=== PATIENT | female | born 1970 | race Caucasian/White ===

== ENCOUNTER 2016-10-19 07:37 | Observation (INO) | payer OTHER ==
[~2016-10-19] VITALS: Ht 167.6 cm; Wt 84.1 kg
[2016-10-19] VITALS (7 sets, daily range): BP systolic 101–142; BP diastolic 64–88; PULSE 61–110; TEMP 36.8; O2SAT 97–99; Ht 167.6 cm; Wt 84.1 kg
[~2016-10-19 07:37] MED LIST: FLX10 PO; IBUP600T44 PO; PRENTAB26 PO
[2016-10-19] MEDS ORDERED: ONDANSETRON INJ 2 MG/ML 2 ML VIAL IV STA ×2 (07:52→10:22)
[2016-10-19] MEDS ORDERED: MoRPHine SULFATE 10 MG/ML CARP/VIAL IV STA ×2 (07:52→10:44)
[2016-10-19] MEDS ORDERED: SODIUM CHLORIDE 0.9% 1000ML 1,000 ML IV STA (07:52)
[2016-10-19 08:33] LABS: BASO % 0.1 %; BASO ABS # 0.02 K/uL (0-0.2); COMPLETE YES; EOS % 0.4 %; HEMATOCRIT 42.5 % (37-47); IG% 0.4 %; LYMPH % 19.9 %; LYMPH ABS # 3.13 K/uL (1.2-3.4); MEAN CORPUSCULAR HEMOGLOBIN 30.2 pg (25-34); MEAN CORPUSCULAR HGB CONC 35.1 g/dl (32-36); MEAN PLATELET VOLUME 10.2 fL (7.4-10.4); MONO % 4.1 %; NEUT % 75.1 %; PLATELET COUNT 416 K/uL (130-400); RED BLOOD COUNT 4.94 M/uL (4.2-5.4); WHITE BLOOD COUNT 15.75 K/uL (4.8-10.8)
[2016-10-19 08:35] LABS: URINE APPEARANCE CLEAR (CLEAR); URINE BILIRUBIN NEG (NEG); URINE COLOR YELLOW; URINE EPITHELIAL CELL AUTO >30 /lpf (0-5); URINE NITRITE NEG (NEG); URINE PH 6.5 (4.5-7.5); URINE SPECIFIC GRAVITY 1.022 (1.000-1.030); UROBILINOGEN NEG (NEG)
[2016-10-19] MEDS ORDERED: MoRPHine SULFATE 4 MG/ML 1 ML CARP\\VIAL IV STA (08:38)
[2016-10-19 08:40] LABS: MANUAL MICROSCOPIC REQUIRED? NO; REVIEW REQ? NO
--- NOTE | 2016-10-19 08:54 | DIAGNOSTIC IMAGING REPORT ---
ABDOMEN AND PELVIS CT WITHOUT CONTRAST CT DOSE: 953.71 mGy.cm HISTORY: Right-sided flank pain. TECHNIQUE: Multiaxial CT images of the abdomen and pelvis were performed without the use of intravenous and oral contrast according to the standard department stone protocol. COMPARISON STUDY: None. FINDINGS: Trace bilateral pleural effusions. No pneumoperitoneum. No pneumatosis. No fractures within the visualized osseous structures. There are 2 hypodense lesions within the right hepatic lobe which are incompletely characterize on this noncontrast study but favor cysts. The largest measures 11 mm. The unenhanced spleen, adrenal glands, pancreas, and gallbladder are unremarkable. No retroperitoneal lymphadenopathy. No left renal stones. There is a 2 mm stone within the lower pole of the right kidney. Mild right hydronephrosis secondary to an obstructing 5 mm stone within the proximal right ureter. The bladder, uterus, and ovaries are unremarkable. Trace pelvic free fluid. No bowel wall thickening or obstruction. Normal appendix. IMPRESSION: 1. A 5 mm obstructing stone within the proximal right ureter resulting in mild right hydronephrosis. 2. Right-sided nephrolithiasis. 3. Trace bilateral pleural effusions and trace pelvic free fluid. 4. Additional findings as described above. Electronically signed by: Hank Stevens M.D. 10/19/2016 8:53 AM Dictated Date/Time: 10/19/2016 8:48 AM
[2016-10-19 09:00] LABS: BUN/CREATININE RATIO 13.1 (10-20); CALCIUM 9.4 mg/dl (8.5-10.1); CREATININE 0.88 mg/dl (0.60-1.20); POTASSIUM 3.7 mmol/L (3.5-5.1)
[2016-10-19] MEDS ORDERED: KETOROLAC TROMETHAMINE 30 MG/ML VIAL IV STA (09:20)
[2016-10-19] MEDS ORDERED: TAMS0.4C38 PO (10:28)
[2016-10-19] MEDS ORDERED: OXYC-57 PO (10:28)
[2016-10-19] MEDS ORDERED: ONDA4TAB46 PO (10:28)
[2016-10-19] MEDS: TAMSULOSIN HCL 0.4 MG CAP PO ONE (10:30)
[2016-10-19] MEDS ORDERED: PROCHLORPERAZINE 5 MG/ML 2 ML VIAL IV STA (10:44)
[2016-10-19] MEDS ORDERED: MoRPHine SULFATE 10 MG/ML CARP/VIAL ONE (10:46)
[2016-10-19] MEDS ORDERED: MoRPHine SULFATE 2 MG/ML CARP IV PRN (11:15)
[2016-10-19] MEDS ORDERED: ACETAMINOPHEN 325 MG TAB PO PRN (11:15)
[2016-10-19] MEDS ORDERED: POLYETHYLENE (MIRALAX) 17 GM PACK PO PRN (11:30)
--- NOTE | 2016-10-19 11:35 | History and Physical ---
History & Physical Date & Time of Service: October 19, 2016 at 11:33 Chief Complaint: Stomach And Back Pain Primary Care Physician: Eben Boyd M.D. History of Present Illness Source: patient Patient is a 45 year old F with PMH of stone in 1997, no other significant PMH, comes to ER with c/o Right flank pain which started yesterday. Patient has had no recent visits to hospital. Patient comes in with c/o right flank pain which started yesterday. Pain is sharp, stabbing, radiates to lower abdomen, associated with nausea, vomiting- couple of times today. No fever, chills, dysuria, frequency of urination, diarrhea, constipation. No chest pain, SOB, vaginal discharge, leg swelling. In ED, she did receive IV Morphine total of 15 mg, IV Zofran - total of 8 mg, Compazine IV X 1 dose for pain/nausea and one dose of flomax. She was going to be discharged from the hospital, but severe pain returned and thus she will be admitted. CT scan abd/pelvis shows- 5 mm right ureteral stone (obstructing) with mild hydronephrosis, WBC 15k. Will admit her for right ureteral obstructing stone. Social History Smoking Status: Never Smoker Multi-Drug Resistant Organisms History of MDRO: No Allergies Coded Allergies: Shellfish (Unverified Allergy, Unknown, unknown, 10/19/16) Home Medications Scheduled Tamsulosin Hcl (Flomax), 0.4 MG PO QD Scheduled PRN Ondansetron Hcl (Zofran), 4 MG PO Q6H PRN for Nausea or Vomiting Oxycodone/Acetaminophen 5MG/325MG (Percocet 5MG/325MG), 1-2 TABS PO Q6H PRN for Pain Review of Systems Constitutional: No chills, No fever Eyes: No eye pain, No worsening of vision ENT: No hearing loss, No nasal symptoms Respiratory: No cough, No shortness of breath, No sputum, No wheezing Cardiovascular: No chest pain, No edema, No orthopnea Abdomen: + nausea, + pain, + vomiting, No GI bleeding, No constipation, No diarrhea Musculoskeletal: No swelling Genitourinary - Female: No dysuria, No urinary frequency Neurologic: No memory loss, No numbness/tingling, No paralysis, No vertigo, No weakness Psychiatric: No anxiety Endocrine: No fatigue Hematologic / Lymphatic: No abnormal bleeding/bruising Integumentary: No rash Physical Exam Vital Signs Date Time Temp Pulse Resp B/P Pulse Ox O2 Delivery O2 Flow Rate FiO2 10/19/16 11:00 98 Room Air 10/19/16 10:25 70 18 133/80 98 Room Air 10/19/16 08:47 79 20 145/99 97 Room Air 10/19/16 08:09 71 10/19/16 07:40 36.7 86 16 136/73 98 Room Air General Appearance: no apparent distress Head: normocephalic, atraumatic ENT: hearing grossly normal Neck: supple, no JVD Respiratory/Chest: chest non-tender, lungs clear, normal breath sounds, no respiratory distress Cardiovascular: regular rate, rhythm, no edema, no murmur Abdomen/GI: normal bowel sounds, non tender, soft, no organomegaly, + pertinent finding (Right flank tenderness) Back: + right CVA tenderness Extremities/Musculoskelatal: no calf tenderness, no pedal edema Neurologic/Psych: no motor/sensory deficits, alert, oriented x 3 Skin: normal color Diagnostics Laboratory Results Results Past 24 Hours Test 10/19/16 07:55 10/19/16 08:15 Range/Units White Blood Count 15.75 4.8-10.8 K/uL Red Blood Count 4.94 4.2-5.4 M/uL Hemoglobin 14.9 12.0-16.0 g/dL Hematocrit 42.5 37-47 % Mean Corpuscular Volume 86.0 80-100 fL Mean Corpuscular Hemoglobin 30.2 25-34 pg Mean Corpuscular Hemoglobin Concent 35.1 32-36 g/dl Platelet Count 416 130-400 K/uL Mean Platelet Volume 10.2 7.4-10.4 fL Neutrophils (%) (Auto) 75.1 % Lymphocytes (%) (Auto) 19.9 % Monocytes (%) (Auto) 4.1 % Eosinophils (%) (Auto) 0.4 % Basophils (%) (Auto) 0.1 % Neutrophils # (Auto) 11.83 1.4-6.5 K/uL Lymphocytes # (Auto) 3.13 1.2-3.4 K/uL Monocytes # (Auto) 0.64 0.11-0.59 K/uL Eosinophils # (Auto) 0.07 0-0.5 K/uL Basophils # (Auto) 0.02 0-0.2 K/uL RDW Standard Deviation 42.8 36.4-46.3 fL RDW Coefficient of Variation 13.6 11.5-14.5 % Immature Granulocyte % (Auto) 0.4 % Immature Granulocyte # (Auto) 0.06 0.00-0.02 K/uL Sodium Level 139 136-145 mmol/L Potassium Level 3.7 3.5-5.1 mmol/L Chloride Level 104 98-107 mmol/L Carbon Dioxide Level 22 21-32 mmol/L Anion Gap 13.0 3-11 mmol/L Blood Urea Nitrogen 12 7-18 mg/dl Creatinine 0.88 0.60-1.20 mg/dl Est Creatinine Clear Calc Drug Dose 88.2 ml/min Estimated GFR () 92.0 Estimated GFR (Non- 79.3 BUN/Creatinine Ratio 13.1 10-20 Random Glucose 139 70-99 mg/dl Calcium Level 9.4 8.5-10.1 mg/dl Total Bilirubin 1.0 0.2-1 mg/dl Direct Bilirubin 0.2 0-0.2 mg/dl Aspartate Amino Transf (AST/SGOT) 21 15-37 U/L Alanine Aminotransferase (ALT/SGPT) 23 12-78 U/L Alkaline Phosphatase 81 45-117 U/L Total Protein 7.5 6.4-8.2 gm/dl Albumin 3.7 3.4-5.0 gm/dl Lipase 109 73-393 U/L Urine Color YELLOW Urine Appearance CLEAR CLEAR Urine pH 6.5 4.5-7.5 Urine Specific [place] 1.022 1.000-1.030 Urine Protein TRACE NEG Urine Glucose (UA) NEG NEG Urine Ketones 2+ NEG Urine Occult Blood 3+ NEG Urine Nitrite NEG NEG Urine Bilirubin NEG NEG Urine Urobilinogen NEG NEG Urine Leukocyte Esterase NEG NEG Urine WBC (Auto) 1-5 0-5 /hpf Urine RBC (Auto) >30 0-4 /hpf Urine Hyaline Casts (Auto) 1-5 0-5 /lpf Urine Epithelial Cells (Auto) >30 0-5 /lpf Urine Bacteria (Auto) NEG NEG Diagnostic Radiology CT ABD/PELVIS: 1. A 5 mm obstructing stone within the proximal right ureter resulting in mild right hydronephrosis. 2. Right-sided nephrolithiasis. 3. Trace bilateral pleural effusions and trace pelvic free fluid. 4. Additional findings as described above. Impression Assessment and Plan RIGHT URETERAL CALCULUS (OBSTRUCTING) WITH MILD HYDRONEPHROSIS: Prior hx of stone in 1998, which spontaneously passed. -CT scan abd/pelvis- as above 5 mm Rt ureteral stone, obstructing and with mild hydronephrosis -IV Fluids at 125 cc/hour -Flomax 0.4 mg daily, IV Morphine 4 mg q 4 hours PRN for severe pain, IV Zofran PRN -Work up- CT scan abd/pelvis as above, UA- negative for UTI, RBC present -Urology consulted. 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 Y/N: Yes Risk Level: Low Given or contraindicated: T.E.D. Stockings, SCD's
[2016-10-19] MEDS ORDERED: TAMSULOSIN HCL 0.4 MG CAP PO STA (12:03)
[2016-10-19] MEDS ORDERED: IV FLUIDS COMPLETED PRN (12:15)
[2016-10-19] MEDS: SODIUM CHLORIDE 0.9% 1000ML 1,000 ML IV SCH ×2 (12:24→18:56)
[2016-10-19] MEDS ORDERED: MoRPHine SULFATE 4 MG/ML 1 ML CARP\\VIAL IV PRN (15:15)
--- NOTE | 2016-10-19 16:06 | EMERGENCY ROOM VISIT NOTE ---
ED Visit Note First contact with patient: 07:42 Chief Complaint: Abdominal pain. History of Present Illness: Ms. Titus is a 45 year-old white female who ambulates into the ED complaining of right sided abdominal pain. Historically patient reports history of kidney stones Patient reports a acute onset of right-sided back pain that started approximately 24 hours ago. Since that time her pain has been constant but has waxed and waned in intensity. She describes her discomfort as a sharp sensation. The pain is radiating around the abdomen and into the right lower quadrant. She rates her discomfort 9/10. Her pain worsens with palpation of the right lower quadrant. She has not identified any alleviating factors related to the pain. She reports she has used ibuprofen without relief of her discomfort. Her pain is slightly better when she is lying down flat on her back. Associated with her pain she reports nausea and vomiting that started this morning. Patient denies fevers, chills, sweats, skin eruptions, skin color changes, upper respiratory tract symptoms, shortness of breath, chest pain, diarrhea, constipation, rectal bleeding, black/tarry stools, urinary symptoms, hematuria, vaginal bleeding, vaginal discharge. Review of Systems: As noted above in history of present illness. All body systems were reviewed and found to be negative as noted above. Past Medical History: As previously noted Current Medications: Patient denies. Allergies to Medications: Patient denies. Social History: Patient is currently employed; she feels safe in her home environment; Physical Examination: Vital Signs: Date Time Temp Pulse Resp B/P Pulse Ox O2 Delivery O2 Flow Rate FiO2 10/19/16 11:00 98 Room Air 10/19/16 10:25 70 18 133/80 98 Room Air 10/19/16 08:47 79 20 145/99 97 Room Air 10/19/16 08:09 71 10/19/16 07:40 36.7 86 16 136/73 98 Room Air GENERAL: 45-year-old female in moderate to severe distress due to pain, nontoxic -appearing, afebrile and hemodynamically stable. NEUROLOGICAL: Awake, alert and oriented to person, place and time. Answering questions appropriately and following commands. Normal gait. Good hand eye coordination. SKIN: Warm, dry and pink. No soft tissue eruptions or trauma noted. HEENT: Atraumatic and normocephalic. PERRLA. Sclera white and conjunctiva pink. Oral cavity moist and pink. Pharynx is nonerythematous or edematous. Speech normal. No lymphadenopathy. Trachea midline. No jugular venous distention. BACK: No tenderness over the bony spine. No CVA tenderness. THORAX: Lungs sounds are clear to auscultation and equal bilaterally with symmetrical chest wall. No wheezing, rales or rhonchi. No crepitus, tenderness , subcutaneous air or deformities noted. HEART: Regular rate and rhythm. No gallops, rubs or murmurs are appreciated. ABDOMEN: Flat and soft with moderate tenderness throughout the right side of the abdomen including the upper, middle and right lower quadrants with positive McBurney's tenderness and Santoro's sign. Positive bowel sounds in all quadrants. No guarding, rigidity or organomegaly. EXTREMITIES: Moves all extremities well on command and with purpose. All distal neurovascular statuses are intact and equal bilaterally. ED Course: Patient is assessed as noted above. Laboratory Testing: Test 10/19/16 07:55 10/19/16 08:15 Range/Units White Blood Count 15.75 4.8-10.8 K/uL Red Blood Count 4.94 4.2-5.4 M/uL Hemoglobin 14.9 12.0-16.0 g/dL Hematocrit 42.5 37-47 % Mean Corpuscular Volume 86.0 80-100 fL Mean Corpuscular Hemoglobin 30.2 25-34 pg Mean Corpuscular Hemoglobin Concent 35.1 32-36 g/dl Platelet Count 416 130-400 K/uL Mean Platelet Volume 10.2 7.4-10.4 fL Neutrophils (%) (Auto) 75.1 % Lymphocytes (%) (Auto) 19.9 % Monocytes (%) (Auto) 4.1 % Eosinophils (%) (Auto) 0.4 % Basophils (%) (Auto) 0.1 % Neutrophils # (Auto) 11.83 1.4-6.5 K/uL Lymphocytes # (Auto) 3.13 1.2-3.4 K/uL Monocytes # (Auto) 0.64 0.11-0.59 K/uL Eosinophils # (Auto) 0.07 0-0.5 K/uL Basophils # (Auto) 0.02 0-0.2 K/uL RDW Standard Deviation 42.8 36.4-46.3 fL RDW Coefficient of Variation 13.6 11.5-14.5 % Immature Granulocyte % (Auto) 0.4 % Immature Granulocyte # (Auto) 0.06 0.00-0.02 K/uL Sodium Level 139 136-145 mmol/L Potassium Level 3.7 3.5-5.1 mmol/L Chloride Level 104 98-107 mmol/L Carbon Dioxide Level 22 21-32 mmol/L Anion Gap 13.0 3-11 mmol/L Blood Urea Nitrogen 12 7-18 mg/dl Creatinine 0.88 0.60-1.20 mg/dl Est Creatinine Clear Calc Drug Dose 88.2 ml/min Estimated GFR () 92.0 Estimated GFR (Non- 79.3 BUN/Creatinine Ratio 13.1 10-20 Random Glucose 139 70-99 mg/dl Calcium Level 9.4 8.5-10.1 mg/dl Total Bilirubin 1.0 0.2-1 mg/dl Aspartate Amino Transf (AST/SGOT) 21 15-37 U/L Alanine Aminotransferase (ALT/SGPT) 23 12-78 U/L Alkaline Phosphatase 81 45-117 U/L Total Protein 7.5 6.4-8.2 gm/dl Albumin 3.7 3.4-5.0 gm/dl Lipase 109 73-393 U/L Urine Color YELLOW Urine Appearance CLEAR CLEAR Urine pH 6.5 4.5-7.5 Urine Specific [place] 1.022 1.000-1.030 Urine Protein TRACE NEG Urine Glucose (UA) NEG NEG Urine Ketones 2+ NEG Urine Occult Blood 3+ NEG Urine Nitrite NEG NEG Urine Bilirubin NEG NEG Urine Urobilinogen NEG NEG Urine Leukocyte Esterase NEG NEG Urine WBC (Auto) 1-5 0-5 /hpf Urine RBC (Auto) >30 0-4 /hpf Urine Hyaline Casts (Auto) 1-5 0-5 /lpf Urine Epithelial Cells (Auto) >30 0-5 /lpf Urine Bacteria (Auto) NEG NEG Noncontrast Abdominal/Pelvic CT: Were reviewed by myself and read by the radiologist showing a 5 mm obstructing calculus in the proximal right ureter resulting in mild right-sided hydronephrosis. Additionally she has an additional right-sided nephrolithiasis, trace bilateral pleural effusions, trace pelvic fluid and to cystic lesions in the right hepatic lobe which favors cysts. Also noted was a normal-appearing gallbladder, pancreas, appendix, bladder, uterus and ovaries. Patient was hydrated with normal saline and she received 8 mg of morphine and 4 mg of Zofran IV initially for her symptoms. During her ED stay she was reassessed multiple times and was given additional doses of morphine totaling 10 mg, 30 mg of Toradol IV for pain, and an additional dose of 4 mg of Zofran IV and 10 mg of Compazine IV for nausea. Patient was feeling comfortable and I was going to discharge her home but then her pain vomiting returned as she was dressing for discharged. Patient's case was consulted with case management [facility] Patient and were educated about today's findings. Clinical Impression: Irretractable pain and vomiting from ureter calculus. Decision-Making: Initially my differential diagnosis I considered kidney stone, pyelonephritis, pancreatitis, hepatitis, cholecystitis, bowel obstruction, acute appendicitis and other causes. Disposition and Plan: [facility]; please see their notes and orders for final disposition and plan.
[2016-10-19] MEDS: ONDANSETRON INJ 2 MG/ML 2 ML VIAL IV PRN ×2 (16:20→22:23)
--- NOTE | 2016-10-19 17:26 | Urology Consultation ---
History General Date of Service: October 19, 2016. Chief Complaint: right ureteral stone Primary Care Physician: Eben Boyd M.D. Pt seen a urologist before?: No History of Present Illness I am ssekd by Dr Esparza to evaluate and treat patient for right ureteral stone. She has had pain since overnight 10/17 - into . Pain has become severe. Pain is associated with nausea. SHe came to ER. Pain is right flank. CT shows a right upper ureteral stone 5mm wide and 10 mm long. Her pain is not moving. She has a 15 K white count normal creat and no fever urine is clean but with epi cells Her pain is controlled with repeated narcotics and toradol. she had a stone in the 90's passed easily and quickly. Imaging Imaging: CT Laboratory Results Past 24 Hours Test 10/19/16 07:55 10/19/16 08:15 Range/Units White Blood Count 15.75 4.8-10.8 K/uL Red Blood Count 4.94 4.2-5.4 M/uL Hemoglobin 14.9 12.0-16.0 g/dL Hematocrit 42.5 37-47 % Mean Corpuscular Volume 86.0 80-100 fL Mean Corpuscular Hemoglobin 30.2 25-34 pg Mean Corpuscular Hemoglobin Concent 35.1 32-36 g/dl Platelet Count 416 130-400 K/uL Mean Platelet Volume 10.2 7.4-10.4 fL Neutrophils (%) (Auto) 75.1 % Lymphocytes (%) (Auto) 19.9 % Monocytes (%) (Auto) 4.1 % Eosinophils (%) (Auto) 0.4 % Basophils (%) (Auto) 0.1 % Neutrophils # (Auto) 11.83 1.4-6.5 K/uL Lymphocytes # (Auto) 3.13 1.2-3.4 K/uL Monocytes # (Auto) 0.64 0.11-0.59 K/uL Eosinophils # (Auto) 0.07 0-0.5 K/uL Basophils # (Auto) 0.02 0-0.2 K/uL RDW Standard Deviation 42.8 36.4-46.3 fL RDW Coefficient of Variation 13.6 11.5-14.5 % Immature Granulocyte % (Auto) 0.4 % Immature Granulocyte # (Auto) 0.06 0.00-0.02 K/uL Sodium Level 139 136-145 mmol/L Potassium Level 3.7 3.5-5.1 mmol/L Chloride Level 104 98-107 mmol/L Carbon Dioxide Level 22 21-32 mmol/L Anion Gap 13.0 3-11 mmol/L Blood Urea Nitrogen 12 7-18 mg/dl Creatinine 0.88 0.60-1.20 mg/dl Est Creatinine Clear Calc Drug Dose 88.2 ml/min Estimated GFR () 92.0 Estimated GFR (Non- 79.3 BUN/Creatinine Ratio 13.1 10-20 Random Glucose 139 70-99 mg/dl Calcium Level 9.4 8.5-10.1 mg/dl Total Bilirubin 1.0 0.2-1 mg/dl Direct Bilirubin 0.2 0-0.2 mg/dl Aspartate Amino Transf (AST/SGOT) 21 15-37 U/L Alanine Aminotransferase (ALT/SGPT) 23 12-78 U/L Alkaline Phosphatase 81 45-117 U/L Total Protein 7.5 6.4-8.2 gm/dl Albumin 3.7 3.4-5.0 gm/dl Lipase 109 73-393 U/L Urine Color YELLOW Urine Appearance CLEAR CLEAR Urine pH 6.5 4.5-7.5 Urine Specific [place] 1.022 1.000-1.030 Urine Protein TRACE NEG Urine Glucose (UA) NEG NEG Urine Ketones 2+ NEG Urine Occult Blood 3+ NEG Urine Nitrite NEG NEG Urine Bilirubin NEG NEG Urine Urobilinogen NEG NEG Urine Leukocyte Esterase NEG NEG Urine WBC (Auto) 1-5 0-5 /hpf Urine RBC (Auto) >30 0-4 /hpf Urine Hyaline Casts (Auto) 1-5 0-5 /lpf Urine Epithelial Cells (Auto) >30 0-5 /lpf Urine Bacteria (Auto) NEG NEG Labs were reviewed and are within normal limits unless listed below. Labs are available in the chart and at [facility] Problem List Medical Problems: (1) Right ureteral calculus Status: Acute Past History no pertinent history Past Surgical History: orthopedic surgery (left knee scope) Family History sister and father have kidney stones Social History Smoking: non-smoker Alcohol: socially Marital status: Occupation status: employed History of MDRO No Allergies Coded Allergies: Shellfish (Unverified Allergy, Unknown, unknown, 10/19/16) Medications Home Medications: Home Meds and Scripts Medications Dose Route/Sig Max Daily Dose Days Date Category Dose Instructions Flomax (Tamsulosin Hcl) 0.4 Mg Cap 0.4 Mg PO QD 10/19/16 Rx Percocet 5MG/325MG (Oxycodone/Acetaminophen) Tab 1-2 Tabs PO Q6H PRN 10/19/16 Rx For Initial Treatment Zofran (Ondansetron HCl) 4 Mg Tab 4 Mg PO Q6H PRN 10/19/16 Rx Inpatient Medications: Current Inpatient Medications Medications (Trade) Dose Ordered Sig/Osman Route Start Time Stop Time Status Last Admin Dose Admin Acetaminophen (Tylenol Tab) 650 mg Q4H PRN PO 10/19/16 11:15 11/18/16 11:14 Polyethylene (Miralax Powder Packet) 17 gm DAILY PRN PO 10/19/16 11:30 11/18/16 11:29 Ondansetron HCl 4 mg 4 mg Q6H PRN IV 10/19/16 11:15 11/18/16 11:14 10/19/16 16:20 4 MG Sodium Chloride (Nss 1000ml) 1,000 ml @ 125 mls/hr Q8H IV 10/19/16 11:15 11/18/16 11:14 10/19/16 12:24 125 MLS/HR Oxycodone/ Acetaminophen (Percocet 5-325mg Tab) 1 tab Q4H PRN PO 10/19/16 11:15 11/02/16 11:14 Morphine Sulfate (MoRPHine SULFATE INJ) 4 mg Q4H PRN IV 10/19/16 15:15 11/02/16 15:14 10/19/16 14:58 4 MG Tamsulosin HCl (Flomax Cap) 0.4 mg DAILY PO 10/20/16 09:00 11/19/16 08:59 Miscellaneous (Iv Fluids Completed) 1 ea PRN PRN N/A 10/19/16 12:15 10/19/17 12:14 Review of Systems Review of Systems Constitutional: No chills, No fever, No weight loss Endocrine: + tired/sluggish, + too cold, No excessive thirst, No too hot Gastrointestinal: + abdominal pain, + indigestion, + nausea, No constipation, No diarrhea Cardiovascular: No chest pain, No irregular heartbeat, No palpitations Respiratory: No chronic cough, No shortness of breath Female : + kidney stones, No frequent urination, No infections, No painful urination, No urinary retention Physical Exam Vital Signs: Vital Signs Past 12 Hours Date Time Temp Pulse Resp B/P Pulse Ox O2 Delivery O2 Flow Rate FiO2 10/19/16 16:00 36.8 110 16 142/88 99 Room Air 10/19/16 15:06 74 97 Nasal Cannula 2.0 10/19/16 13:15 Nasal Cannula 2.0 10/19/16 12:10 36.8 61 16 113/78 98 Nasal Cannula 2.0 10/19/16 11:30 67 16 121/83 97 Nasal Cannula 2.0 10/19/16 11:00 98 Room Air 10/19/16 10:25 70 18 133/80 98 Room Air 10/19/16 08:47 79 20 145/99 97 Room Air 10/19/16 08:09 71 10/19/16 07:40 36.7 86 16 136/73 98 Room Air Physical Exam: General Appearance: WD/WN, no apparent distress, + obese Eyes: bilateral eyes normal inspection ENT: hearing grossly normal Neck: no adenopathy, no JVD, trachea midline Respiratory/Chest: normal breath sounds, no respiratory distress, no accessory muscle use Cardiovascular: regular rate, rhythm, no edema Gastrointestinal: Abdomen: normal abdomen Bladder: normal bladder Renal: pertinent finding (right cva tenderness) Hernia: absent hernia Extremities: non-tender, normal inspection, no pedal edema, no calf tenderness Neurologic/Psychiatric: alert, normal mood/affect, oriented x 3 Skin: normal color, warm/dry, no rash Assessment & Plan Assessment & Plan right upper ureteral stone has not moved at all here in day 2. I offered observation stent with delayed eswl or ureteroscopy tomorrow she choses right ureteroscopy laser lithotripsy basket stone extraction stent. 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 add toradol, and increased morphine to q 2 hours
[2016-10-19] MEDS: KETOROLAC TROMETHAMINE 30 MG/ML VIAL IV PRN (18:01)
[2016-10-19] MEDS: MoRPHine SULFATE 4 MG/ML 1 ML CARP\\VIAL IV PRN ×2 (19:38→22:24)
[2016-10-20] VITALS (8 sets, daily range): BP systolic 100–120; BP diastolic 65–78; PULSE 75–86; TEMP 36.4–36.9; O2SAT 92–100
[2016-10-20] MEDS: MoRPHine SULFATE 4 MG/ML 1 ML CARP\\VIAL IV PRN ×3 (00:45→09:55)
[2016-10-20] MEDS: OXYCODONE/ACETAMINOPHEN 5-325 TAB PO PRN ×2 (01:43→07:51)
[2016-10-20] MEDS: SODIUM CHLORIDE 0.9% 1000ML 1,000 ML IV SCH ×3 (02:56→19:15)
[2016-10-20] MEDS: KETOROLAC TROMETHAMINE 30 MG/ML VIAL IV PRN ×2 (02:58→10:58)
[2016-10-20] MEDS ORDERED: CEFAZOLIN IV 2,000 MG/60 ML D5W IV SCH (06:00)
[2016-10-20 07:43] LABS: HEMATOCRIT 38.5 % (37-47); MEAN CELL VOLUME 87.9 fL (80-100); MEAN CORPUSCULAR HEMOGLOBIN 28.5 pg (25-34); MEAN CORPUSCULAR HGB CONC 32.5 g/dl (32-36); MEAN PLATELET VOLUME 9.4 fL (7.4-10.4); PLATELET COUNT 281 K/uL (130-400); RED BLOOD COUNT 4.38 M/uL (4.2-5.4); WHITE BLOOD COUNT 11.83 K/uL (4.8-10.8)
[2016-10-20] MEDS: TAMSULOSIN HCL 0.4 MG CAP PO SCH (07:51)
[2016-10-20] MEDS: ONDANSETRON INJ 2 MG/ML 2 ML VIAL IV PRN ×2 (07:51→14:41)
[2016-10-20 08:36] LABS: BUN/CREATININE RATIO 8.2 (10-20); CREATININE 1.1 mg/dl (0.60-1.20); POTASSIUM 3.7 mmol/L (3.5-5.1)
[2016-10-20 08:53] LABS: CALCIUM 8.6 mg/dl (8.5-10.1)
[2016-10-20] MEDS ORDERED: METOCLOPRAMIDE HCL INJ 5 MG/ML 2 ML VIAL IV PRN (10:45)
[2016-10-20] MEDS ORDERED: METOCLOPRAMIDE HCL INJ 5 MG/ML 2 ML VIAL IV SCH (11:00)
[2016-10-20] MEDS ORDERED: PROMETHAZINE HCL INJ 12.5 MG in SODIUM CHLORIDE 0.9% 50ML 50 ML IV PRN (11:45)
--- NOTE | 2016-10-20 11:50 | Progress Note ---
Medicine Progress Note Date & Time of Visit: October 20, 2016 at 11:45. Subjective having nausea this morning denies abdominal pain, no flatus right flank pain persisting- analgesics helping no fevers chest pain, dyspnea, dizziness, palpitations no other symptoms Objective Last 8 Hrs Date Time Temp Pulse Resp B/P Pulse Ox O2 Delivery O2 Flow Rate FiO2 10/20/16 07:45 99 Room Air 10/20/16 07:12 36.7 77 16 117/78 100 Nasal Cannula 2.0 Physical Exam: General- oriented x 3, not in distress, speaks in sentences with no effort Eyes- EOMI, anicteric ENT- oropharynx clear Neck- supple, no JVD, no adenopathy, no thyromegaly Lungs- clear to auscultation b/l Heart- regular rhythm; no murmur, normal rate Abdomen- normal bowel sounds, soft, nontender no CVA tenderness Extremities- no pretibial edema, no calf tenderness Neuro- alert, oriented x 3; no gross focal deficits Skin- warm & dry Laboratory Results: Last 24 Hours Test 10/20/16 07:13 White Blood Count 11.83 K/uL Red Blood Count 4.38 M/uL Hemoglobin 12.5 g/dL Hematocrit 38.5 % Mean Corpuscular Volume 87.9 fL Mean Corpuscular Hemoglobin 28.5 pg Mean Corpuscular Hemoglobin Concent 32.5 g/dl RDW Standard Deviation 44.5 fL RDW Coefficient of Variation 13.8 % Platelet Count 281 K/uL Mean Platelet Volume 9.4 fL Sodium Level 142 mmol/L Potassium Level 3.7 mmol/L Chloride Level 108 mmol/L Carbon Dioxide Level 26 mmol/L Anion Gap 8.0 mmol/L Blood Urea Nitrogen 9 mg/dl Creatinine 1.10 mg/dl Est Creatinine Clear Calc Drug Dose 70.6 ml/min Estimated GFR () 70.2 Estimated GFR (Non- 60.6 BUN/Creatinine Ratio 8.2 Random Glucose 107 mg/dl Calcium Level 8.6 mg/dl Assessment & Plan RIGHT URETERAL CALCULUS (OBSTRUCTING) WITH MILD HYDRONEPHROSIS: -CT scan abd/pelvis- as above 5 mm Rt ureteral stone, obstructing and with mild hydronephrosis - afebrile WBC trending down crea stable -- continue Morphine, Toradol IV fluids Tamsulosin -- for right ureteroscopy laser lithotripsy basket stone extraction stent today -- appreciate Dr. Genao's recommendations NAUSEA likely from Pain, Morphine -- antiemetics, Protonix for now -- monitor MICROSCOPIC HEMATURIA likely from Lithiasis ff up as outpatient DVT PROPHYLAXIS Low risk, SCD/IFRAH DISPOSITION awaiting stent placement today Current Inpatient Medications: Current Inpatient Medications Medications (Trade) Dose Ordered Sig/Osman Route Start Time Stop Time Status Last Admin Dose Admin Acetaminophen (Tylenol Tab) 650 mg Q4H PRN PO 10/19/16 11:15 11/18/16 11:14 Polyethylene (Miralax Powder Packet) 17 gm DAILY PRN PO 10/19/16 11:30 11/18/16 11:29 Ondansetron HCl 4 mg 4 mg Q6H PRN IV 10/19/16 11:15 11/18/16 11:14 10/20/16 07:51 4 MG Sodium Chloride (Nss 1000ml) 1,000 ml @ 125 mls/hr Q8H IV 10/19/16 11:15 11/18/16 11:14 10/20/16 10:59 125 MLS/HR Oxycodone/ Acetaminophen (Percocet 5-325mg Tab) 1 tab Q4H PRN PO 10/19/16 11:15 11/02/16 11:14 10/20/16 07:51 1 TAB Tamsulosin HCl (Flomax Cap) 0.4 mg DAILY PO 10/20/16 09:00 11/19/16 08:59 10/20/16 07:51 0.4 MG Miscellaneous (Iv Fluids Completed) 1 ea PRN PRN N/A 10/19/16 12:15 10/19/17 12:14 Cefazolin Sodium (Ancef 2000mg/60 ml D5W) 2,000 mg PREOP IV 10/20/16 06:00 10/20/16 14:00 Morphine Sulfate (MoRPHine SULFATE INJ) 4 mg Q2HWA PRN IV 10/19/16 18:00 10/21/16 15:14 10/20/16 09:55 4 MG Ketorolac Tromethamine (Toradol Inj) 30 mg Q8H PRN IV 10/19/16 17:30 10/24/16 17:29 10/20/16 10:58 30 MG Metoclopramide HCl (Reglan Inj) 10 mg Q6H PRN IV 10/20/16 10:45 11/19/16 10:44 Metoclopramide HCl (Reglan Inj) 10 mg TODAY@1100 IV 10/20/16 11:00 10/20/16 12:00 10/20/16 10:57 10 MG
[2016-10-20] MEDS ORDERED: PANTOprazole INJ 40 MG in SYRINGE 0 ML IV ONE (12:45)
[2016-10-20] MEDS ORDERED: KETOROLAC TROMETHAMINE 30 MG/ML VIAL IV PRN (15:30)
[2016-10-20] MEDS ORDERED: FENTANYL CITRATE INJ 50 MCG/1 ML 2 ML VIAL ONE ×2 (15:48→18:45)
[2016-10-20] MEDS ORDERED: MIDAZOLAM HCL 1 MG/ML 2ML VIAL ONE (15:48)
[2016-10-20] MEDS ORDERED: PROPOFOL IV EMULSION 10 MG/ML 20 ML VIAL IV ONE (15:51)
[2016-10-20] MEDS ORDERED: ONDANSETRON INJ 2 MG/ML 2 ML VIAL ONE (15:51)
[2016-10-20] MEDS ORDERED: KETOROLAC TROMETHAMINE 30 MG/ML VIAL ONE (15:51)
[2016-10-20] MEDS ORDERED: LIDOCAINE HCL 2% 2 ML VIAL (20MG/ML) ONE (15:51)
[2016-10-20] MEDS ORDERED: DEXAMETHASONE SOD INJ 4 MG/ML VIAL ONE (15:51)
[2016-10-20] MEDS ORDERED: ATROPINE SULFATE 0.1 MG/ML 5ML SYR IV PRN (16:00)
[2016-10-20] MEDS ORDERED: HYDROmorphone INJ 1 MG/ML SYR IV PRN (16:00)
[2016-10-20] MEDS ORDERED: LABETALOL HCL IV 5 MG/ML 20ML IV PRN (16:00)
[2016-10-20] MEDS ORDERED: MEPERIDINE HCL 25 MG/ML CARP IV PRN (16:00)
[2016-10-20] MEDS ORDERED: ONDANSETRON INJ 2 MG/ML 2 ML VIAL IV PRN (16:00)
[2016-10-20] MEDS ORDERED: EpHEDrine SULFATE INJ 50 MG/ML AMP IV PRN (16:00)
[2016-10-20] MEDS ORDERED: CONRAY 30% 150ML BOTTLE ONE (16:07)
--- NOTE | 2016-10-20 16:37 | History & Physical Bridge Note ---
H&P Re-Evaluation Bridge Note: I have examined the patient, reviewed the History & Physical and in the interval since the performance of the History & Physical I have noted the following changes of clinical significance: No changes noted
[2016-10-20] MEDS ORDERED: GLYCOPYRROLATE INJ 0.2 MG/ML VIAL ONE (17:01)
[2016-10-20] MEDS ORDERED: ROCURONIUM BROMIDE 10 MG/ML 5 ML VIAL ONE (17:01)
[2016-10-20] MEDS ORDERED: NEOSTIGMINE METHYLSULFATE 5 MG/5 ML SYR ONE (17:01)
[2016-10-20] MEDS ORDERED: BELLADONNA/OPIUM SUPP 60 MG SUPP PR ONE ×2 (17:11→17:58)
[2016-10-20] MEDS ORDERED: LARYING-O-JET KIT (LTA) EXT ONE ×2 (17:12)
--- NOTE | 2016-10-20 18:12 | [facility] Operative Report ---
Operative Report Operative Date October 20, 2016. Pre-Operative Diagnosis Obstructing Right Upper Ureteral Calculus with Hydronephrosis Post-Operative Diagnosis right mid ureteral obstructing stone Procedure(s) Performed cysto, right ureteroscopy laser lithotripsy basket stone extraction, stent placement Surgeon Dr. Cristine Eaton Ski Lift Mechanic Surgeon(s) none Estimated Blood Loss 1ML Findings radio-opaque 10mm stone over the top of the right SI joint , narrow ureter, narrow urethral meatus Specimens A: Right Ureteral Stone Fragments Drains 6 fr 24 centimeter double J stent Anesthesia GET Complication(s) None Disposition Recovery Room / PACU Indications obstructing right upper ureteral stone with no progression and severe pain. Description of Procedure Patient was given general GET anesthesia and placed in lithotomy position. Her genitals were prepped and draped in sterile fashion. Time out held with team. I placed a 21 fr rigid cystoscope to bladder. The urethra is with a very small meatus and required a dilation with the cystoscope blind obturators to calibrate the lumen to accept the 21 fr sheath. The UOs are stadium shape. There is no efflux from the right UO. I placed a road runner wire up right ureter and followed it with fluoro to the right kidney. The stone is impacted and the 5 fr had much resistance to pass proximal to stone. i switched to a stiff wire noting very brisk hydro drip thru the 5 fr open ended. I then calibrated the right UO with a dual lumen catheter. The UO is very tight to the dual lumen. I passed the flexible ureteroscope over second wire to the stone. It is tight going. I used a 200 micron holmium laser to fragment the stone into about 8 pieces. Lasering was difficult as the ureter angles here for the iliac vessels so lining the laser fiber with the stone was slow going. I basket extracted 2 pieces but he scope would not re-enter the ureter a third time to gather more fragments. I then placed a 24 centimeter 6 Fr double J stent easily to the kidney. I left bladder empty and concluded case. I placed a belladonna and opium suppository for post-op pain. She transferred to recovery under my escort, in stable condition. Plan: Home today or tomorrow Pyridium for dysuria x 3 days flomax daily until stent removed oral pain meds as needed in 3 weeks either stent out of a second surgery to basket out the remaining fragments. 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 Any exceptions are noted below.
[2016-10-20] MEDS ORDERED: PHENAZOPYRIDINE HCL 200 MG TAB PO PRN (18:15)
[2016-10-20] MEDS ORDERED: NURSING VERBAL MED ORDER ONE ×2 (18:45→21:45)
[2016-10-20] MEDS: FENTANYL CITRATE INJ 50 MCG/1 ML 2 ML VIAL IV PRN ×2 (18:47→18:52)
--- NOTE | 2016-10-20 18:57 | Anesthesiology Progress Note ---
Anesthesia Post Op Note Date & Time October 20, 2016 at 18:56 Vital Signs Pain Intensity: 5.0 Vital Signs Past 12 Hours Date Time Temp Pulse Resp B/P Pulse Ox O2 Delivery O2 Flow Rate FiO2 10/20/16 18:45 68 16 120/75 93 Room Air 10/20/16 18:35 88 16 133/73 95 Room Air 10/20/16 18:25 68 16 147/87 100 Mask 10 10/20/16 18:15 68 12 120/83 100 Mask 10 10/20/16 18:07 36.9 65 12 116/77 98 Mask 10 10/20/16 16:02 36.8 81 16 116/72 96 Room Air 10/20/16 11:49 36.7 75 16 114/73 96 Room Air 10/20/16 07:45 99 Room Air 10/20/16 07:12 36.7 77 16 117/78 100 Nasal Cannula 2.0 Notes Mental Status: alert / awake / arousable, participated in evaluation Pt Amnestic to Procedure: Yes Nausea / Vomiting: adequately controlled Pain: adequately controlled Airway Patency, RR, SpO2: stable & adequate BP & HR: stable & adequate Hydration State: stable & adequate Anesthetic Complications: no major complications apparent
--- NOTE | 2016-10-20 19:09 | DIAGNOSTIC IMAGING REPORT ---
INTRAOPERATIVE SUPINE ABDOMEN SINGLE VIEW CLINICAL HISTORY: Right stent placement. Laser lithotripsy. COMPARISON STUDY: No previous studies for comparison. FINDINGS: 94 seconds of fluoroscopic time was utilized. A single intraoperative fluoroscopic spot image of the pelvis is provided for interpretation. This reveals the distal aspect of a right-sided nephroureteral stent. IMPRESSION: The distal aspect of a right-sided nephroureteral stent is visualized Electronically signed by: David Huffman M.D. 10/20/2016 7:07 PM Dictated Date/Time: 10/20/2016 7:06 PM
[2016-10-20] MEDS ORDERED: METOCLOPRAMIDE HCL INJ 5 MG/ML 2 ML VIAL IV ONE (19:15)
[2016-10-21 03:22] VITALS: BP 107/69; PULSE 96; TEMP 36.7; O2SAT 96
[2016-10-21] MEDS: OXYCODONE/ACETAMINOPHEN 5-325 TAB PO PRN ×2 (06:23→10:25)
[2016-10-21] MEDS: TAMSULOSIN HCL 0.4 MG CAP PO SCH (07:39)
[2016-10-21 08:00] VITALS: O2SAT 99
[2016-10-21 08:07] VITALS: BP 102/69; PULSE 95; TEMP 36.9; O2SAT 96
--- NOTE | 2016-10-21 08:26 | Anesthesiology Progress Note ---
Anesthesia Post Op Note Date & Time October 21, 2016 at 08:27 Vital Signs Pain Intensity: 4.0 Vital Signs Past 12 Hours Date Time Temp Pulse Resp B/P Pulse Ox O2 Delivery O2 Flow Rate FiO2 10/21/16 08:07 36.9 95 16 102/69 96 Room Air 10/21/16 03:22 36.7 96 16 107/69 96 Room Air 10/20/16 23:30 Nasal Cannula 10/20/16 22:16 36.9 86 18 100/65 92 Room Air 10/20/16 21:33 36.8 78 18 115/73 96 Room Air 10/20/16 20:35 36.4 75 16 120/77 95 Room Air Notes Mental Status: alert / awake / arousable, participated in evaluation Pt Amnestic to Procedure: Yes Nausea / Vomiting: adequately controlled Pain: adequately controlled Airway Patency, RR, SpO2: stable & adequate BP & HR: stable & adequate Hydration State: stable & adequate Anesthetic Complications: no major complications apparent
[2016-10-21] MEDS ORDERED: NITROFURANTOIN MONOHYDRATE 100 MG CAP PO SCH (09:00)
[2016-10-21] MEDS ORDERED: PANTOprazole SOD 40 MG TAB PO SCH (10:42)
[2016-10-21] MEDS ORDERED: PANTOprazole INJ 40 MG in SYRINGE 0 ML IV SCH (11:00)
--- NOTE | 2016-10-21 13:04 | Progress Note ---
Medicine Progress Note Date & Time of Visit: October 21, 2016 at 12:52. Subjective patient seen resting in bed, comfortable has been passing stone fragments since this AM has pink tinged urine, denies dysuria/fever/chills pain adequately controlled denies chest pain, dyspnea, palpitations, nausea/vomiting ambulating with no problems states she is ready and would like to be discharged today Objective Last 8 Hrs Date Time Temp Pulse Resp B/P Pulse Ox O2 Delivery O2 Flow Rate FiO2 10/21/16 08:07 36.9 95 16 102/69 96 Room Air 10/21/16 08:00 99 Room Air Physical Exam: General- oriented x 3, not in distress, speaks in sentences with no effort Eyes- anicteric Neck- no JVD Lungs- clear to auscultation bilaterally, no rales/wheezes Heart- normal rate, regular rhythm; no murmurs Abdomen- normal bowel sounds, non distended, soft, nontender; no CVA tenderness Extremities- no pretibial edema Neuro- alert, oriented x 3; no gross focal deficits Skin- warm & dry Laboratory Results: Last 24 Hours Test 10/21/16 12:35 Assessment & Plan RIGHT URETERAL CALCULUS (OBSTRUCTING) WITH MILD HYDRONEPHROSIS: -CT scan abd/pelvis- as above 5 mm Rt ureteral stone, obstructing and with mild hydronephrosis - remains afebrile WBC trended down crea stable -- 10/20/16: s/p cysto, right ureteroscopy laser lithotripsy basket stone extraction, stent placement by Dr. Eaton -- discharge recommendations: Macrobid x 1 week Tamsulosin daily until stent removed Pyridium x 3 days PRN Percocet for pain; PRN Senna in 3 weeks either stent out or a second surgery to basket out the remaining fragments -- ff up with PCP in 1 week ff up with Dr. Eaton in 2 weeks NAUSEA likely from Pain, Morphine resolved MICROSCOPIC HEMATURIA likely from Lithiasis ff up as outpatient DISPOSITION d/c home today ff up with PCP in 1 week ff up with Dr. Eaton in 2 weeks Current Inpatient Medications: Current Inpatient Medications Medications (Trade) Dose Ordered Sig/Osman Route Start Time Stop Time Status Last Admin Dose Admin Acetaminophen (Tylenol Tab) 650 mg Q4H PRN PO 10/19/16 11:15 11/18/16 11:14 Polyethylene (Miralax Powder Packet) 17 gm DAILY PRN PO 10/19/16 11:30 11/18/16 11:29 Ondansetron HCl (Zofran Inj) 4 mg Q6H PRN IV 10/19/16 11:15 11/18/16 11:14 10/20/16 14:41 4 MG Oxycodone/ Acetaminophen (Percocet 5-325mg Tab) 1 tab Q4H PRN PO 10/19/16 11:15 11/02/16 11:14 10/21/16 10:25 1 TAB Tamsulosin HCl (Flomax Cap) 0.4 mg DAILY PO 10/20/16 09:00 11/19/16 08:59 10/21/16 07:39 0.4 MG Miscellaneous (Iv Fluids Completed) 1 ea PRN PRN N/A 10/19/16 12:15 10/19/17 12:14 Morphine Sulfate (MoRPHine SULFATE INJ) 4 mg Q2HWA PRN IV 10/19/16 18:00 10/21/16 15:14 10/20/16 09:55 4 MG Metoclopramide HCl (Reglan Inj) 10 mg Q6H PRN IV 10/20/16 10:45 11/19/16 10:44 Ketorolac Tromethamine 30 mg 30 mg Q6H PRN IV 10/20/16 15:30 10/25/16 15:29 10/20/16 15:38 30 MG Promethazine HCl/ Sodium Chloride (Phenergan Inj/ Nss 50ml) 50.5 ml @ 204 mls/hr Q6H PRN IV 10/20/16 11:45 11/19/16 11:44 Phenazopyridine HCl (Pyridium Tab) 200 mg TID PRN PO 10/20/16 18:15 11/19/16 18:14 Nitrofurantoin Macrocrystals (Macrobid Cap) 100 mg BID PO 10/21/16 09:00 10/22/16 08:59 10/21/16 07:42 100 MG Pantoprazole Sodium (Protonix Tab) 40 mg QAM PO 10/21/16 10:42 11/20/16 10:41 10/21/16 10:53 40 MG
[2016-10-21 13:15] LABS: BUN/CREATININE RATIO 9.4 (10-20); CALCIUM 8.8 mg/dl (8.5-10.1); CREATININE 0.89 mg/dl (0.60-1.20); POTASSIUM 3.6 mmol/L (3.5-5.1)
[2016-10-21] MEDS ORDERED: MCRB100 PO (13:17)
[2016-10-21] MEDS ORDERED: PHEN-775 PO (13:17)
[2016-10-21] MEDS ORDERED: TAMS0.4C38 PO (13:17)
[2016-10-21] MEDS ORDERED: SENN8.6T7 PO (13:17)
[2016-10-21] MEDS ORDERED: OXYC-57 PO (13:22)
--- NOTE | 2016-10-21 13:30 | Discharge Instructions ---
Discharge Instructions Date of Service October 21, 2016. Admission Reason for Admission: Right Ureteral Calculus Discharge Discharge Diagnosis / Problem: RIGHT URETERAL STONE Discharge Goals Goal(s): Diagnostic testing, Therapeutic intervention Activity Recommendations Activity Limitations: as noted below (NO HEAVY EXERTION UNTIL RE-EVALUATED BY PRIMARY CARE PHYSICIAN) Driving or Machine Use: NO DRIIVNG WHILE TAKING PERCOCET . Instructions / Follow-Up Instructions / Follow-Up PLEASE REVIEW YOUR NEW MEDICATION LIST AND FOLLOW INSTRUCTIONS CAREFULLY. ENSURE ADEQUATE DAILY FLUID INTAKE. DO NOT TAKE NSAID'S FOR PAIN (EXAMPLE: IBUPROFEN, NAPROXEN, CELECOXIB). PLEASE CALL THE UROLOGIST, OR PRIMARY CARE PHYSICIAN OR RETURN TO ER IMMEDIATELY IF YOU HAVE INCREASING PAIN, INCREASING BLOOD IN THE URINE, FEVER/CHILLS. FOLLOW UP WITH PRIMARY CARE PHYSICIAN DR. FREDRICK CHAVEZ AT [facility] ON SUNDAY OCTOBER 23, 2016 AT 11:00AM. FOLLOW UP WITH UROLOGIST DR. HINOJOSA IN 2 WEEKS. TEL NO. Current Hospital Diet Patient's current hospital diet: Regular Diet Discharge Diet Recommended Diet: Regular Diet Procedures Procedures Performed: Right Ureteroscopy, Laser Lithotripsy with Basket Stone Extraction, Stent Placement Pending Studies Studies pending at discharge: no Medical Emergencies . Who to Call and When: Medical Emergencies: If at any time you feel your situation is an emergency, please call 911 immediately. . Non-Emergent Contact Non-Emergency issues call your: Primary Care Provider, Urologist Call Non-Emergent contact if: you have a fever, your pain is not controlled, your pain is worsening, you have any medication questions . Past History Medical & Surgical History: (1) Right ureteral calculus (2) History of renal stone (3) Status post LEEP (loop electrosurgical excision procedure) of cervix (4) S/P knee surgery . "Provider Documentation" section prepared by Juan Francisco Gonzales. . VTE Core Measure Inpt VTE Proph given/why not?: Rolando Cordero, [employer] [place] Drug Monitoring Program Search Results: patient reviewed within database, no issues identified
--- NOTE | 2016-10-21 13:42 | Discharge Summary ---
Discharge Summary Date of Service October 21, 2016. Discharge Summary Admission Date: October 19, 2016 at 11:16 Discharge Date: October 21, 2016 Discharge Disposition: Home Principal Diagnosis: RIGHT URETERAL CALCULUS (OBSTRUCTING) WITH MILD HYDRONEPHROSIS: Secondary Diagnoses/Problems: Please refer to hospital course below. Procedures: ABDOMEN AND PELVIS CT WITHOUT CONTRAST CT DOSE: 953.71 mGy.cm HISTORY: Right-sided flank pain. TECHNIQUE: Multiaxial CT images of the abdomen and pelvis were performed without the use of intravenous and oral contrast according to the standard department stone protocol. COMPARISON STUDY: None. FINDINGS: Trace bilateral pleural effusions. No pneumoperitoneum. No pneumatosis. No fractures within the visualized osseous structures. There are 2 hypodense lesions within the right hepatic lobe which are incompletely characterize on this noncontrast study but favor cysts. The largest measures 11 mm. The unenhanced spleen, adrenal glands, pancreas, and gallbladder are unremarkable. No retroperitoneal lymphadenopathy. No left renal stones. There is a 2 mm stone within the lower pole of the right kidney. Mild right hydronephrosis secondary to an obstructing 5 mm stone within the proximal right ureter. The bladder, uterus, and ovaries are unremarkable. Trace pelvic free fluid. No bowel wall thickening or obstruction. Normal appendix. IMPRESSION: 1. A 5 mm obstructing stone within the proximal right ureter resulting in mild right hydronephrosis. 2. Right-sided nephrolithiasis. 3. Trace bilateral pleural effusions and trace pelvic free fluid. 4. Additional findings as described above. Consultations: UROLOGIST DR. HINOJOSA Pending Studies/Follow-Up: PLEASE REFER TO HOSPITAL COURSE BELOW. Medication Reconciliation New Medications: Phenazopyridine Hcl (Pyridium) 200 Mg Tab 1 TAB PO TID PRN for pain with urination for 2 Days, #6 TAB 0 Refills WITH FULL STOMACH Sennosides-Docusate Sodium (Senokot S) 1 Tab Tab 1 TAB PO DAILY PRN for while taking Percocet for 7 Days, #7 TAB 1 Refill Nitrofurantoin Monohyd Macrocr (Nitrofurantoin Monohydrat) 100 Mg Cap 100 MG PO BID for 7 Days, #14 CAP 0 Refills Changed Medications: Oxycodone/Acetaminophen 5MG/325MG (Percocet 5MG/325MG) Tab 1 TAB PO Q6H PRN for Pain, #10 TAB 0 Refills (Changed from: 1-2 TABS; 24; Refills: ; Removed Instructions) Tamsulosin Hcl (Flomax) 0.4 Mg Cap 0.4 MG PO QD for 14 Days, #14 CAP 1 Refill (Changed from: 6; Refills: ) continue taking until Ureteral Stent has been removed Admission Information HPI (per Admitting provider): Patient is a 45 year old F with PMH of stone in 1997, no other significant PMH, comes to ER with c/o Right flank pain which started yesterday. Patient has had no recent visits to hospital. Patient comes in with c/o right flank pain which started yesterday. Pain is sharp, stabbing, radiates to lower abdomen, associated with nausea, vomiting- couple of times today. No fever, chills, dysuria, frequency of urination, diarrhea, constipation. No chest pain, SOB, vaginal discharge, leg swelling. In ED, she did receive IV Morphine total of 15 mg, IV Zofran - total of 8 mg, Compazine IV X 1 dose for pain/nausea and one dose of flomax. She was going to be discharged from the hospital, but severe pain returned and thus she will be admitted. CT scan abd/pelvis shows- 5 mm right ureteral stone (obstructing) with mild hydronephrosis, WBC 15k. Will admit her for right ureteral obstructing stone. Physical Exam (per Admitting): General Appearance: no apparent distress Head: normocephalic, atraumatic ENT: hearing grossly normal Neck: supple, no JVD Respiratory/Chest: chest non-tender, lungs clear, normal breath sounds, no respiratory distress Cardiovascular: regular rate, rhythm, no edema, no murmur Abdomen/GI: normal bowel sounds, non tender, soft, no organomegaly, + pertinent finding (Right flank tenderness) Back: + right CVA tenderness Extremities/Musculoskelatal: no calf tenderness, no pedal edema Neurologic/Psych: no motor/sensory deficits, alert, oriented x 3 Skin: normal color Hospital Course RIGHT URETERAL CALCULUS (OBSTRUCTING) WITH MILD HYDRONEPHROSIS: -CT scan abd/pelvis- 5 mm Rt ureteral stone, obstructing and with mild hydronephrosis - remained afebrile WBC trended down crea stable -- 10/20/16: s/p cysto, right ureteroscopy laser lithotripsy basket stone extraction, stent placement by Dr. Hinojosa -- discharge recommendations: Macrobid x 1 week Tamsulosin daily until stent removed Pyridium x 3 days PRN Percocet for pain; PRN Senna in 3 weeks either stent out or a second surgery to basket out the remaining fragments -- ff up with PCP in 1 week ff up with Dr. Hinojosa in 2 weeks NAUSEA likely from Pain, Morphine resolved MICROSCOPIC HEMATURIA likely from Lithiasis ff up as outpatient POSSIBLE LIVER CYSTS seen on CT abdomen: "There are 2 hypodense lesions within the right hepatic lobe which are incompletely characterize on this noncontrast study but favor cysts. The largest measures 11 mm." -- please follow up as outpatient DISPOSITION d/c home today ff up with PCP in 1 week ff up with Dr. Hinojosa in 2 weeks Total time spent on discharge = 40 minutes This includes examination of the patient, discharge planning, medication reconciliation, and communication with other providers. Discharge Instructions Discharge Instructions Date of Service October 21, 2016. Admission Reason for Admission: Right Ureteral Calculus Discharge Discharge Diagnosis / Problem: RIGHT URETERAL STONE Discharge Goals Goal(s): Diagnostic testing, Therapeutic intervention Activity Recommendations Activity Limitations: as noted below (NO HEAVY EXERTION UNTIL RE-EVALUATED BY PRIMARY CARE PHYSICIAN) Driving or Machine Use: NO DRIIVNG WHILE TAKING PERCOCET . Instructions / Follow-Up Instructions / Follow-Up PLEASE REVIEW YOUR NEW MEDICATION LIST AND FOLLOW INSTRUCTIONS CAREFULLY. ENSURE ADEQUATE DAILY FLUID INTAKE. DO NOT TAKE NSAID'S FOR PAIN (EXAMPLE: IBUPROFEN, NAPROXEN, CELECOXIB). PLEASE CALL THE UROLOGIST, OR PRIMARY CARE PHYSICIAN OR RETURN TO ER IMMEDIATELY IF YOU HAVE INCREASING PAIN, INCREASING BLOOD IN THE URINE, FEVER/CHILLS. FOLLOW UP WITH PRIMARY CARE PHYSICIAN DR. FREDRICK CHAVEZ AT [facility] ON SUNDAY OCTOBER 23, 2016 AT 11:00AM. FOLLOW UP WITH UROLOGIST DR. HINOJOSA IN 2 WEEKS. TEL NO. Current Hospital Diet Patient's current hospital diet: Regular Diet Discharge Diet Recommended Diet: Regular Diet Procedures Procedures Performed: Right Ureteroscopy, Laser Lithotripsy with Basket Stone Extraction, Stent Placement Pending Studies Studies pending at discharge: no Medical Emergencies . Who to Call and When: Medical Emergencies: If at any time you feel your situation is an emergency, please call 911 immediately. . Non-Emergent Contact Non-Emergency issues call your: Primary Care Provider, Urologist Call Non-Emergent contact if: you have a fever, your pain is not controlled, your pain is worsening, you have any medication questions . Past History Medical & Surgical History: (1) Right ureteral calculus (2) History of renal stone (3) Status post LEEP (loop electrosurgical excision procedure) of cervix (4) S/P knee surgery . "Provider Documentation" section prepared by Juan Francisco Gonzales. . VTE Core Measure Inpt VTE Proph given/why not?: Rolando Cordero, [employer] [place] Drug Monitoring Program Search Results: patient reviewed within database, no issues identified
[2016-10-21 13:48] VITALS: BP 102/69; PULSE 95; TEMP 36.9; O2SAT 96
[2016-11-11] MEDS ORDERED: OXYC-57 PO (11:14)
[2016-11-11] MEDS ORDERED: PHEN-775 PO (11:14)
[2016-11-11] MEDS ORDERED: TAMS0.4C38 PO (11:14)
== END 2016-10-21 14:27 | disposition home or self-care (01) ==
LOC: ENRESERVDT → ENRESERVTM → C.EDB 07:38 → C.MSW 11:16
PROVIDERS: ADMIT Internal Medicine; ATTEND Internal Medicine
DX: N13.2 Hydronephrosis with renal and ureteral calculous obstruction (principal)

== ENCOUNTER → 2016-11-11 | Day surgery (SDC) | payer OTHER ==
[~2016-11-11] VITALS: Ht 167.6 cm; Wt 82.0 kg
[~2016-11-11] MED LIST changes: +ATROPINE SULFATE 0.1 MG/ML 5ML SYR IV PRN; +BELLADONNA/OPIUM SUPP 60 MG SUPP PR ONE; +CEFAZOLIN 2000 MG/60 ML D5W IV SCH; +CONRAY 30% 150ML BOTTLE ONE; +DEXAMETHASONE SOD INJ 4 MG/ML VIAL ONE; +EpHEDrine SULFATE INJ 50 MG/ML AMP IV PRN; +FENTANYL CITRATE INJ 50 MCG/1 ML 2 ML VIAL ONE; -FLX10 PO; +HYDROmorphone INJ 1 MG/ML SYR IV PRN; -IBUP600T44 PO; +KETOROLAC TROMETHAMINE 30 MG/ML VIAL ONE; +LACTATED RINGER'S 1000ML 1,000 ML IV SCH; +LIDOCAINE HCL 2% 2 ML VIAL (20MG/ML) ONE; +MCRB100 PO; +MIDAZOLAM HCL 1 MG/ML 2ML VIAL ONE; +ONDANSETRON INJ 2 MG/ML 2 ML VIAL IV PRN; +ONDANSETRON INJ 2 MG/ML 2 ML VIAL ONE; +OXYC-57 PO; +PATIENT'S HEIGHT AND/OR WEIGHT NEEDED SCH; +PHEN-775 PO; -PRENTAB26 PO; +PROMETHAZINE HCL INJ 12.5 MG in SODIUM CHLORIDE 0.9% 50ML 50 ML IV PRN; +PROPOFOL IV EMULSION 10 MG/ML 20 ML VIAL IV ONE; +SENN8.6T7 PO; +TAMS0.4C38 PO
[2016-11-11 09:10] VITALS: BP 122/86; PULSE 86; TEMP 36.8; O2SAT 97; Ht 167.6 cm; Wt 82.0 kg
--- NOTE | 2016-11-11 10:02 | History and Physical ---
History Date of Service: November 11, 2016. Chief Complaint: right ureteral stone Primary Care Physician: Lyubov CHAVEZ M.D. Pt seen a urologist before?: Yes If yes, why?: rt stone History of Present Illness Patient presents for completion stone removal today right ureter. Her first stone fragmentation was 3 weeks ago while an inptient. her stone was large and heavily impacted at the iliac vessels. She tolerated the stent since well. Imaging CT Laboratory Labs were reviewed and are within normal limits unless listed below. Labs are available in the chart and at [facility] Problem List Medical Problems: (1) Right ureteral calculus Status: Acute Past History Past Medical History: no pertinent history Past Surgical History: orthopedic surgery, other (ureteroscoy october 2016) Family History Diabetes mellitus MOTHER SISTER FH: CAD (coronary artery disease) FATHER Hypertension FATHER Stroke FATHER Social History Smoking: non-smoker Alcohol: socially Marital status: Occupation status: employed History of MDRO No Allergies Coded Allergies: Shellfish (Unverified Allergy, Severe, throat and tongue swelled, 11/11/16) NO KNOWN DRUG ALLERGIES (Verified Allergy, Unknown, nkda, 11/11/16) Medications Home Medications: Home Meds and Scripts Medications Dose Route/Sig Max Daily Dose Days Date Category Dose Instructions Percocet 5MG/325MG (Oxycodone/Acetaminophen) Tab 1 Tab PO Q6H PRN 10/21/16 Rx Pyridium (Phenazopyridine Hcl) 200 Mg Tab 1 Tab PO TID PRN 2 10/21/16 Rx WITH FULL STOMACH Senokot S (Sennosides-Docusate Sodium) 1 Tab Tab 1 Tab PO DAILY PRN 7 10/21/16 Rx Flomax (Tamsulosin Hcl) 0.4 Mg Cap 0.4 Mg PO QD 14 10/21/16 Rx continue taking until Ureteral Stent has been removed Inpatient Medications: Current Inpatient Medications Medications (Trade) Dose Ordered Sig/Osman Route Start Time Stop Time Status Last Admin Dose Admin Lactated Ringer's 1,000 ml @ 15 mls/hr Q24H IV 11/11/16 06:00 11/12/16 05:59 Cefazolin Sodium (Ancef 2000mg/60 ml D5W) 60 ml @ 100 mls/hr PREOP IV 11/11/16 06:00 11/11/16 18:00 Miscellaneous Information (Patient'S Height And/Or Weight Needed) 1 ea Q2H N/A 11/10/16 15:30 12/10/16 15:29 Fentanyl Citrate (Fentanyl Inj) 25 mcg Q5M PRN IV 11/11/16 07:45 11/11/16 13:00 Hydromorphone HCl (Dilaudid Inj) 0.25 mg Q5M PRN IV 11/11/16 07:45 11/11/16 13:00 Ondansetron HCl (Zofran Inj) 4 mg ONE PRN IV 11/11/16 07:45 11/11/16 13:00 Ephedrine Sulfate (EpHEDrine SULFATE INJ) 5 mg Q5M PRN IV 11/11/16 07:45 11/11/16 13:00 Atropine Sulfate (Atropine Sulfate 0.1MG/Ml Inj) 0.5 mg Q1M PRN IV 11/11/16 07:45 11/11/16 13:00 Review of Systems Review of Systems Constitutional: No chills, No fever Endocrine: No excessive thirst Gastrointestinal: No abdominal pain Cardiovascular: No chest pain Respiratory: No shortness of breath Female : + blood in urine, + frequent urination, + kidney stones Physical Exam Vital Signs: Vital Signs Past 12 Hours Date Time Temp Pulse Resp B/P Pulse Ox O2 Delivery O2 Flow Rate FiO2 11/11/16 09:10 36.8 86 18 122/86 97 Room Air Physical Exam: General Appearance: WD/WN, no apparent distress, + thin Eyes: bilateral eyes normal inspection ENT: hearing grossly normal Respiratory/Chest: lungs clear, normal breath sounds, no respiratory distress, no accessory muscle use Cardiovascular: regular rate, rhythm Extremities: non-tender, normal inspection, no pedal edema, no calf tenderness , normal capillary refill Neurologic/Psychiatric: alert, normal mood/affect, oriented x 3 Skin: normal color, warm/dry, no rash Assessment & Plan Assessment & Plan right mid ureteral stone plan right ureteroscopy laser lithotripsy basket stone extraction, stent removal or stent exchange. 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
[2016-11-11] MEDS: FENTANYL CITRATE INJ 50 MCG/1 ML 2 ML VIAL IV PRN ×4 (11:00→11:15)
--- NOTE | 2016-11-11 11:08 | [facility] Operative Report ---
Operative Report Operative Date November 11, 2016. Pre-Operative Diagnosis Right impacted ureteral stone Post-Operative Diagnosis right ureteral stone Procedure(s) Performed cysto removal right ureteral stent, basket stone extraction, right ureteroscopy Surgeon Dr. Cristine Eaton Gym Teacher Surgeon(s) None Estimated Blood Loss 0 mL Findings radio-lucent stone fragment mid ureter, small Kervin's plaque kidney Fluids 600mL Specimens No pathology specimens per surgeon Drains none Anesthesia LMA Complication(s) None Disposition Recovery Room / PACU Indications large impacted right ureteral stone, we plan to remove remaining fragments from ureter. Description of Procedure Patient was given general LMA anesthesia and placed in lithotomy position. Her genitals were prepped and draped in sterile fashion. Time out held with team. I placed a 22 fr rigid cystoscope to bladder. The urethra is with a very small meatus and required a dilation with the cystoscope blind obturators to calibrate the lumen to accept the 22 fr sheath. The UOs are stadium shape. I grasped stent tip and withdrew to meatus. I passed s tiff wire thru the old stent to the right kidney. I removed stent and found it to be intact and clean. I passed the flexible ureteroscope along side the wire up the right ureter. There is a single stone fragment in the mid ureter. i used a 2.4 fr zero tip basket to remove it. I examined the area of prior impaction and it is open and healing beautifully, no raw areas noted. I went into kidney and dislodged 2 small Kervin's plaques. I scoped slowly down ureter and ensured stone free. Case was short and ureter is a nice caliber so I did not place a new stent. I left bladder empty and concluded case. I placed a belladonna and opium suppository for post-op pain. She transferred to recovery under my escort, in stable condition. Plan: Home today Pyridium for dysuria x 3 days flomax daily until pain free oral pain meds as needed in 6 weeks a renal ultrasound to rule out ureteral stricture. 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 Any exceptions are noted below.
--- NOTE | 2016-11-11 11:20 | Discharge Instructions ---
Discharge Instructions Date of Service November 11, 2016. Admission Reason for Admission: Kidney Stone Discharge Discharge Diagnosis / Problem: right ureteral stone Discharge Goals Goal(s): Improve disease control Activity Recommendations Activity Limitations: resume your previous activity Lifting Limitations: none Exercise/Sports Limitations: none May Resume Sexual Activity: when tolerated Shower/Bathe: no limitations Driving or Machine Use: resume 1 day after discharge . Instructions / Follow-Up Instructions / Follow-Up use pyridium prn burning with urination use flomax daily until pain free I would like you to get a renal ultrasound in 6 weeks to make sure ureter heals nicely where the stone was stuck use ibuprofen prn mild to moderate pain use narcotic only for severe pain Discharge Diet Recommended Diet: Regular Diet Fluid Restriction: None Procedures Procedures Performed: Cystoscopy, Right Ureteroscopy, Stone Extraction; Right ureteral Stent removal Pending Studies Studies pending at discharge: no Medical Emergencies . Who to Call and When: Medical Emergencies: If at any time you feel your situation is an emergency, please call 911 immediately. . Non-Emergent Contact Non-Emergency issues call your: Urologist ([phone]) Call Non-Emergent contact if: temperature is above 100.5, your pain is not controlled . . "Provider Documentation" section prepared by Cristine Eaton. . VTE Core Measure Inpt VTE Proph given/why not?: SCD's [place] Drug Monitoring Program Search Results: patient reviewed within database, no issues identified
--- NOTE | 2016-11-11 11:26 | Anesthesiology Progress Note ---
Anesthesia Post Op Note Date & Time November 11, 2016 at 11:26 Vital Signs Pain Intensity: 3 Vital Signs Past 12 Hours Date Time Temp Pulse Resp B/P Pulse Ox O2 Delivery O2 Flow Rate FiO2 11/11/16 11:20 77 16 115/79 94 Room Air 11/11/16 11:10 72 16 118/81 99 Mask 10 11/11/16 11:00 79 16 118/72 97 Mask 10 11/11/16 10:53 36.0 92 16 122/80 98 Mask 10 11/11/16 09:10 36.8 86 18 122/86 97 Room Air Notes Mental Status: alert / awake / arousable, participated in evaluation Pt Amnestic to Procedure: Yes Nausea / Vomiting: improving with treatment Pain: adequately controlled Airway Patency, RR, SpO2: stable & adequate BP & HR: stable & adequate Hydration State: stable & adequate Anesthetic Complications: no major complications apparent
--- NOTE | 2016-11-11 11:34 | DIAGNOSTIC IMAGING REPORT ---
INTRAOPERATIVE RADIOGRAPHS CLINICAL HISTORY: Lithotripsy and stent exchange. Fluoroscopy time: 5 seconds. FINDINGS: 4 spot fluoroscopic images of the right mid abdomen from a lithotripsy procedure and ureteral stent exchange are obtained. The images show cannulation of the right ureter. A lithotripsy device is noted in the lower ureter on one of the images. IMPRESSION: Intraoperative images from a laser lithotripsy and ureteral stent exchange procedure. See operative report for detailed findings. Electronically signed by: Andrez Coughlin M.D. 11/11/2016 11:32 AM Dictated Date/Time: 11/11/2016 11:31 AM
[2016-11-11 12:00] VITALS: BP 117/72; PULSE 87; TEMP 36.1; O2SAT 99
[2016-11-11 12:30] VITALS: BP 128/76; PULSE 88; TEMP 36.1; O2SAT 100
[2016-11-11 12:49] VITALS: BP 124/81; PULSE 90; TEMP 36.6; O2SAT 97
== END | disposition home or self-care (01) ==
LOC: C.ACU 08:39
PROVIDERS: ATTEND Urology
DX: N20.1 Calculus of ureter (principal); Z83.3 Family history of diabetes mellitus; Z82.49 Family history of ischemic heart disease and other diseases of the circulatory system; Z82.3 Family history of stroke

== ENCOUNTER → 2017-01-28 | Outpatient (CLI) | payer OTHER ==
[~2017-01-28] MED LIST changes: -ATROPINE SULFATE 0.1 MG/ML 5ML SYR IV PRN; -BELLADONNA/OPIUM SUPP 60 MG SUPP PR ONE; -CEFAZOLIN 2000 MG/60 ML D5W IV SCH; -CONRAY 30% 150ML BOTTLE ONE; -DEXAMETHASONE SOD INJ 4 MG/ML VIAL ONE; -EpHEDrine SULFATE INJ 50 MG/ML AMP IV PRN; -FENTANYL CITRATE INJ 50 MCG/1 ML 2 ML VIAL ONE; +GADOXETATE DISODIUM (NON-WT BASED PROCEDURE) IV PRN; -HYDROmorphone INJ 1 MG/ML SYR IV PRN; -KETOROLAC TROMETHAMINE 30 MG/ML VIAL ONE; -LACTATED RINGER'S 1000ML 1,000 ML IV SCH; -LIDOCAINE HCL 2% 2 ML VIAL (20MG/ML) ONE; -MCRB100 PO; -MIDAZOLAM HCL 1 MG/ML 2ML VIAL ONE; -ONDANSETRON INJ 2 MG/ML 2 ML VIAL IV PRN; -ONDANSETRON INJ 2 MG/ML 2 ML VIAL ONE; -PATIENT'S HEIGHT AND/OR WEIGHT NEEDED SCH; -PROMETHAZINE HCL INJ 12.5 MG in SODIUM CHLORIDE 0.9% 50ML 50 ML IV PRN; -PROPOFOL IV EMULSION 10 MG/ML 20 ML VIAL IV ONE
--- NOTE | 2017-01-28 22:21 | DIAGNOSTIC IMAGING REPORT ---
LIVER COMBO CLINICAL HISTORY: 46 years-old Female presenting with LIVER LESION on ultrasound from 01/20/2017, lower right abdominal pain, history of ovarian cyst. TECHNIQUE: Multisequence, multiplanar MR imaging of the abdomen was performed before and after the administration of intravenous contrast. IV contrast: 10 mL of Eovist. COMPARISON: CT from 10/19/2016. FINDINGS: Localizer images: Unremarkable. Lung bases: Lung bases clear. No pericardial or pleural effusion. Liver: Normal morphology. Hepatic fat fraction measures 9.3%, indicative of mild steatosis. Well-defined T2 hyperintense 11 mm lesion in segment 6 (series 3 image 14). Additional similar lesion in segment 7 measuring 11 mm (series 3 image 11), which on early postcontrast imaging demonstrates suggestion of subtle nodular peripheral enhancement (series 11 image 72). Postcontrast imaging demonstrates no retention of contrast on the hepatobiliary phase. Additionally, there are several smaller lesions are not readily apparent on T2-weighted imaging but are evident as hypointense foci on the hepatobiliary specific phase. None of these lesions demonstrates hyperenhancement on early postcontrast imaging. Patent hepatic vasculature. Biliary: Intrahepatic biliary trifurcation. No intrahepatic or extrahepatic biliary ductal dilatation. Normal gallbladder. Pancreas: Normal. Spleen: Normal. Adrenal glands: Normal. Kidneys and ureters: Normal. No hydronephrosis. Gastrointestinal tract: Normal. No bowel obstruction. Peritoneal cavity: No free fluid or intraperitoneal gas. Vasculature: Aorta and IVC patent and normal in caliber. Lymph nodes: No enlarged lymph nodes in the abdomen or pelvis. Abdominal wall: Normal. Musculoskeletal: Normal. IMPRESSION: 1. Multiple liver lesions which do not retain hepatobiliary specific contrast and have other signal characteristics most compatible with hepatic cysts or hamartomas. One of the lesions may represent a hemangioma. Initial characterization of liver lesions is best performed with an extracellular agent such as Gadavist, which could be obtained if clinically warranted. In the absence of a history of malignancy, these lesions are felt to most likely be benign. 2. Mild hepatic steatosis. Electronically signed by: Jose Neely M.D. 01/28/2017 10:19 PM Dictated Date/Time: 01/28/2017 10:07 PM
== END | disposition home or self-care (01) ==
LOC: C.MRI 19:32
PROVIDERS: ATTEND Internal Medicine
DX: K76.9 Liver disease, unspecified (principal)